=== PATIENT | male | born 1955 | race Caucasian/White ===

== ENCOUNTER → 2018-07-24 | Outpatient (CLI) | payer MEDICARE, OTHER ==
[2018-07-24 08:57] LABS: Blood Urea Nitrogen 19 mg/dL (9-20)
--- NOTE | 2018-07-24 10:06 | CT ---
EXAMINATION TYPE: CT pelvis w con DATE OF EXAM: 07/24/2018 COMPARISON: None HISTORY: bilateral inguinal hernia CT DLP: 495.2 mGycm Automated exposure control for dose reduction was used. CONTRAST: Performed with IV Contrast, patient injected with 100 mL of Isovue 300. FINDINGS: There are patulous inguinal canals but are bilaterally fat filled, right greater than left. No hernia tion of bowel is seen. Very small right hydrocele is present. No superficial inguinal adenopathy. No dilated large or small bowel is noted. Colonic spasm is seen within the sigmoid colon. Very few de scending colonic diverticula are seen without pericolic fat stranding. Small bowel feces sign is seen throughout indicating either incompetence of the ileocecal valve or ileus. Probable left renal sinus cysts. No hydroureter. Visualized kidneys, liver, spleen, and gallbladder are unremarkable. Moderate atherosclerosis is seen of the abdominal aorta. Left hip arthroplasty creates spray artifact and par tially obscures visualization of the pelvis. Extensive arthropathy is seen of the right femur with po ssible area of avascular necrosis versus geode seen on coronal series 7 image 21 is a serpiginous are a of sclerosis. Extensive facet arthropathy is seen in the lumbar spine.. IMPRESSION: BILATERAL INGUINAL RINGS ARE PATULOUS CONTAINING A VERY SMALL AMOUNT OF FAT. NO HERNIATION OF BOWEL. 2. EXTENSIVE ARTHROPATHY OF THE RIGHT FEMORAL ACETABULAR JOINT WITH FINDINGS SUSPICIOUS FOR AVASCULAR NECROSIS. 3. SMALL BOWEL FECES SIGN THROUGHOUT THE LOW PELVIS INDICATING EITHER AN INCOMPETENT ILEOCECAL VALVE OR INCREASED BOWEL TRANSIT TIME/ILEUS. COLONOSCOPY COULD BE CONSIDERED IF NOT RECENTLY PERFORMED.
== END | disposition home or self-care (01) ==
LOC: RADCTMAIN 08:18
PROVIDERS: ATTEND Surgery
DX: R93.5 Abnormal findings on diagnostic imaging of other abdominal regions, including retroperitoneum (principal); K40.20 Bilateral inguinal hernia, without obstruction or gangrene, not specified as recurrent
CPT/HCPCS: 82565; 84520; 72193; 36415; Q9967

== ENCOUNTER 2018-08-25 07:11 | Day surgery (SDC) | payer MEDICARE, OTHER ==
[2018-08-20 15:41] VITALS: BMI 23.6
[~2018-08-25 07:11] MED LIST: DEXAMETHASONE SOD PHOSPHATE 10 MG/ML 1 ML VIAL IV ONE; HEPARIN SODIUM,PORCINE 5,000 UNIT/ML 1 ML VIAL SQ ONE; MIDAZOLAM 2 MG/2 ML VIAL IV PRN; ONDANSETRON 4 MG/2 ML VIAL IVP ONE; ceFAZolin IN SWFI 2 GM/20 ML SYRINGE IVP ONE; fentaNYL (PF) 50 MCG/ML 2 ML AMP IV PRN
[2018-08-25] MEDS: LACTATED RINGERS 1,000 ML IV SCH ×2 (07:58→08:09)
[2018-08-25] MEDS ORDERED: LIDOCAINE 1% 20 ML VIAL (10MG/ML) FOR IV START INTRADERMA ONE ×2 (08:09→08:10)
[2018-08-25] MEDS ORDERED: MIDAZOLAM (PF) 2 MG/2 ML VIAL IV ONE (09:05)
[2018-08-25] MEDS ORDERED: fentaNYL (PF) 50 MCG/ML 2 ML AMP IV ONE (09:05)
--- NOTE | 2018-08-25 09:10 | P.GSHP ---
History of Present Illness H&P Date: 08/25/18 Chief Complaint: Bilateral inguinal hernia This is a 63-year-old male who presents today for laparoscopic robotic-assisted repair of bilateral inguinal hernia. Patient developed masses in bilateral groins. His hernias are reducible. Past Medical History Past Medical History: Coronary Artery Disease (CAD), COPD, Hyperlipidemia, Hypertension, Myocardial Infarction (CO), Osteoarthritis (OA) Last Myocardial Infarction Date:: 03/16/2015 History of Any Multi-Drug Resistant Organisms: None Reported Past Surgical History: Adenoidectomy, Appendectomy, Back Surgery, Coronary Bypass/CABG, Heart Catheterization With Stent, Hernia Repair, Joint Replacement, Orthopedic Surgery, Tonsillectomy Additional Past Surgical History / Comment(s): total left hip, Back, rt inginual hernia, rt carpal bridgette, "titanium wishbone plate in neck" CABG x4, one stent Past Anesthesia/Blood Transfusion Reactions: No Reported Reaction Date of Last Stent Placement:: 03/16/2015 Past Psychological History: No Psychological Hx Reported Smoking Status: Former smoker Past Alcohol Use History: Occasional Additional Past Alcohol Use History / Comment(s): smoked as a teen less than 1/2ppd Past Drug Use History: Marijuana Additional Drug Use History / Comment(s): instructed to hold 24hrs prior to procedure - Past Family History Father Family Medical History: Myocardial Infarction (CO) Additional Family Medical History / Comment(s): at age 57 from CO Mother Family Medical History: Cancer Additional Family Medical History / Comment(s): breast cancer. at age 62. had turberculosis as a child Brother(s) Family Medical History: Hyperlipidemia Sister(s) Family Medical History: Hypertension, Osteoarthritis (OA) Medications and Allergies Home Medications Medication Instructions Recorded Confirmed Type Multivitamins, Thera [Multivitamin 1 tab PO DAILY 11/29/14 08/25/18 History (formulary)] Aspirin EC [Ecotrin Low Dose] 81 mg PO DAILY 06/15/15 08/25/18 History Cyanocobalamin [Vitamin B-12] 500 mg PO DAILY 06/15/15 08/25/18 History Carvedilol [Coreg] 3.125 mg PO BID #60 tablet 06/16/15 08/25/18 Rx Atorvastatin [Lipitor] 40 mg PO DAILY 08/20/18 08/25/18 History Losartan/Hydrochlorothiazide 1 each PO DAILY 08/20/18 08/25/18 History [Losartan-Hctz 100-25 mg Tab] Allergies Allergy/AdvReac Type Severity Reaction Status Date / Time morphine Allergy Severe Anaphylaxis Verified 08/25/18 07:47 iodine Allergy Rash/Hives Verified 08/25/18 07:47 naproxen sodium [From Aleve] Allergy Rash/Hives/throat Verified 08/25/18 07:47 swelling Surgical - Exam Vital Signs Temp Pulse Resp BP Pulse Ox 98.3 F 61 16 174/75 97 08/25/18 07:41 08/25/18 07:41 08/25/18 07:41 08/25/18 07:41 08/25/18 07:41 - General well developed, well nourished, no distress - Eyes PERRL - ENT normal pinna - Neck no masses - Respiratory normal expansion - Cardiovascular Rhythm: regular - Abdomen Abdomen: soft, non tender Assessment and Plan Assessment: Bilateral inguinal hernia. We'll perform laparoscopic robotic-assisted repair.
[2018-08-25] MEDS ORDERED: KETOROLAC 30 MG/ML 1 ML VIAL ONE (09:32)
[2018-08-25] MEDS ORDERED: fentaNYL (PF) 50 MCG/ML 2 ML AMP ONE (09:32)
[2018-08-25] MEDS ORDERED: LIDOCAINE 1%-EPI 1:100,000 20 ML VIAL ONE (09:32)
[2018-08-25] MEDS ORDERED: NEOSTIGMINE 1 MG/ML 10 ML VIAL ONE (09:32)
[2018-08-25] MEDS ORDERED: PROPOFOL 10 MG/ML 20 ML VIAL IV ONE (09:32)
[2018-08-25] MEDS ORDERED: ROPIVACAINE 5 MG/ML 30 ML VIAL ONE (09:32)
[2018-08-25] MEDS ORDERED: ROCURONIUM BROMIDE 10 MG/ML 10 ML VIAL IV ONE (09:32)
[2018-08-25] MEDS ORDERED: SUCCINYLCHOLINE CHLORIDE 100 MG/5 ML SYR IV ONE (09:32)
[2018-08-25] MEDS ORDERED: MIDAZOLAM 2 MG/2 ML VIAL ONE (09:32)
[2018-08-25] MEDS ORDERED: GLYCOPYRROLATE 0.2 MG/ML 2 ML VIAL ONE (09:32)
[2018-08-25] MEDS ORDERED: LIDOCAINE 1% INJ 10MG/ML (20 ML MDV) ONE (09:32)
[2018-08-25] MEDS ORDERED: BUPIVACAINE (PF) 0.25% 30 ML VIAL SQ ONE (10:02)
--- NOTE | 2018-08-25 10:25 | P.ONQ ---
Anesthesiology Proc Note - PNB - Peripheral Nerve Block Performed Bilateral Transversus Abdominis Single Time Out Performed: Yes Procedure Start Time: 09:05 Indication: Acute Post-Operative Pain Sedation Type: Sedate with meaningful contact maintained Preparation: Sterile Prep Position: Supine Catheter: None Needle Types: Other (see comment) (PAJUNK) Needle Size: 100mm (4") Needle Gauge: 21 Technique: Ultrasound Injectate: Other (see comment) (Ropivacaine 0.25%/lidocaine 0.5% 25 mL per side) Adjunct: Epinephrine (see comment for dilution ratio) (1:200,000) Blood Aspirated: No Pain Paresthesia on Injection Noted: No Resistance on Injection: Normal Events: Uneventful and Well Tolerated
[2018-08-25 10:51] VITALS: TEMP 97.8
--- NOTE | 2018-08-25 10:56 | P.OP ---
Date of Procedure: 08/25/18 Preoperative Diagnosis: Bilateral inguinal hernia Postoperative Diagnosis: Recurrent bilateral inguinal hernia Procedure(s) Performed: Repair of recurrent bilateral inguinal hernia Anesthesia: MARTHA Surgeon: Gabo Lewis Estimated Blood Loss (ml): 5 Pathology: none sent Condition: stable Disposition: PACU Description of Procedure: The patient's placed on the operative table in the supine position. He received general anesthesia. His abdomen was prepped and draped in the usual sterile fashion. The patient had bilateral recurrent inguinal hernias. A supraumbilical skin incision was made then using a pair of Addis clamps the umbilicus was grasped and then a Veress needles placed into the perineal cavity. Position of the Veress needle was confirmed with positive drop test. The abdomen then split. After adequate insufflation a 5 mm trochars placed in the pleural cavity. Next the laparoscope was placed. Cavity. The patient was placed in the reverse number position. The patient had bilateral inguinal hernias. There was evidence of previous mesh repair. Mesh was adherent to the peritoneum. The hernias appeared to be in the medial to the cord position. At this point due to the previous mesh repair and the inability to separate the peritoneum from the mesh was incised convert procedure open procedure. The trochars withdrawn. The right inguinal hernias repaired first. A standard inguinal incision was made in the left cautery the fascia external oblique was exposed. A cecilia in the fascia was made with a 15 blade and the fascia was opened with a pair of Metzenbaum scissors. The cord structures were dissected free from the floor of the inguinal canal. Using the pusher the hernia sac was dissected free and then the hernia sac was inverted. The Prolene hernia mesh plug was then placed into the preperitoneal space. The inferior leads expanded. The superior leaf was attached to the pubic female he. And then was incised and wrapped around the cord structures and secured with 2-0 Prolene suture. The fascia was closed with 0 Vicryl. Adilia's fascia closed with 0 Vicryl. Skin was closed interrupted 3-0 Monocryl suture. Dermabond was applied. Next the left inguinal hernia was repaired in identical fashion. The skin was closed interrupted 3-0 Monocryl suture. Dermabond was applied. Patient was sent to recovery in stable condition.
[2018-08-25 10:57] VITALS: RESP 16
[2018-08-25 11:41] VITALS: BP 177/62; PULSE 73
== END 2018-08-25 12:27 | disposition home or self-care (01) ==
LOC: OR 07:11
PROVIDERS: ATTEND Surgery
DX: K40.21 Bilateral inguinal hernia, without obstruction or gangrene, recurrent (principal); I25.10 Atherosclerotic heart disease of native coronary artery without angina pectoris; J44.9 Chronic obstructive pulmonary disease, unspecified; E78.5 Hyperlipidemia, unspecified; I10 Essential (primary) hypertension; I25.2 Old myocardial infarction; M19.90 Unspecified osteoarthritis, unspecified site; Z79.82 Long term (current) use of aspirin; Z87.891 Personal history of nicotine dependence; Z88.6 Allergy status to analgesic agent; Z95.1 Presence of aortocoronary bypass graft; Z82.49 Family history of ischemic heart disease and other diseases of the circulatory system; Z79.899 Other long term (current) drug therapy; Z88.5 Allergy status to narcotic agent; Z91.048 Other nonmedicinal substance allergy status
CPT/HCPCS: 49520; 64488; C1781; J2250 ×2; J1644; J1100; J2710; J2405; J2001; J3010; J1885; J2795; J0330; J2704; J0690